=== PATIENT | female | born 1975 | race African-American/Black ===

== ENCOUNTER 2019-12-08 14:47 | Emergency (ER) | payer BC, OTHER ==
--- OUTSIDE RECORDS SUMMARY | 2019-12-08 14:50 | XMS REPORT | Continuity of Care Document ---
:[address] [facility] t Address [address] [place] [address] Care Team Providers Name Role Phone Unavailable Unavailable Unavailable Problems Condition Condition Condition Status Onset Resolution Last Treating Co mments Source Name Details Category Date Date Treatment Clinician Date Mixed Mixed Diagnosis Active [facility] hyperlipid hyperlipid Geovanna kes - emia emia [facility] HTN HTN Diagnosis Active [facility] (hypertens (hypertens Geovanna kes - ion), ion), [facility] benign benign l [facility] Depression Depression Diagnosis [facility] with [facility] anxiety anxiety [facility] Bone Bone Diagnosis Active [facility] lesion lesion [facility] Amenorrhea Amenorrhea Problem Active [facility] Menopausal Menopausal Problem Active [facility] disorder disorder [facility] Seasonal Seasonal Diagnosis Active [facility] allergic allergic [facility] - rhinitis, rhinitis, [place] unspecifie unspecifie l d trigger d trigger Outp ati ent Clinics Encounter Encounter Problem Active [facility] for for [facility] - gynecologi gynecologi Me moria philippe philippe l examinatio examinatio Ou tpati n without n without ent abnormal abnormal Clinic s finding finding BMI BMI Problem Active [facility] 33.0-33.9, 33.0-33.9, Geovanna kes - adult adult [facility] Encounter Encounter Problem Active [facility] - screening screening [place] mammogram mammogram l for breast for breast Ou tpati cancer cancer ent Clinics Osteoarthr Osteoarthr Diagnosis Active [facility] itis, itis, [facility] - unspecifie unspecifie Me moria d d l osteoarthr osteoarthr Ou tpati itis type, itis type, en t unspecifie unspecifie Cl inics d site d site Prediabete Prediabete Diagnosis Active [facility] GERD GERD Problem Active [facility] without without [facility] - esophagiti esophagiti Me moria s s l [facility] Allergies, Adverse Reactions, Alerts Allergy Allergy Status Severity Reaction(s) Onset Inactive Treating Comm ents Source Name Type Date Date Clinician penicill Adverse Active Info Not [facility] t in Reaction Available [facility] Aspirin Adverse Active Info Not [facility] Reaction Available [facility] Medications Ordered Filled Start Stop Current Ordering Indication Dosage Frequency Signature Comments Components Source Medication Medication Date Date Medication? Clinician (SIG) Name Name Duexis Duexis Yes [place] [address] [facility] 4-22 [facility] - 00:00: Memoria 00 [facility] Lisinopril- Lisinopril- Yes [place] [address] [facility] Hydrochloro Hydrochloro [facility] - thiazide thiazide [facility] Lisinopril- Lisinopril- Yes [place] [address] [facility] [address] Hydrochloro Hydrochloro [facility] - thiazide thiazide [facility] Immunizations Ordered Filled Immunization Date Status Comments Sourc e Immunization Name Name Afluria single dose Afluria single dose 2018-12-[address] [facility] 00[facility]00 [facility] Procedures This patient has no known procedures. Encounters Start End Encounter Admission Attending Care Care Encounter Source Date/Time Date/Time Type Type Clinicians Facility Department ID 2019-08-27 2019-08-27 [facility] [id number] [facility] 16:15:00 16:15:00 t Soccer Manager [facility] [employer] 2019-08-06 2019-08-06 [facility] [id number] [facility] 10:15:00 10:15:[address] Soccer [address] [facility] [employer] 2019-04-07 2019-04-07 [facility] [id number] [facility] 16:45:00 16:45:[address] [facility] [employer] 2018-12-31 2018-12-31 [facility] [id number] 16[facility]00:00 16:00:00 t Warren Warren [facility]CL [facility] - [facility] Medicine Outpati ent Clinics 2018-12-17 2018-12-17 [facility] [id number] 15:03:00 15:03:00 t Warren Warren [employer] - [facility] Medicine Outpati ent Clinics 2018-09-01 2018-09-01 [facility] [id number] [facility] 08[facility]36:00 08:36:00 t [facility] Clinic l Outpati ent Clinics 2018-08-18 2018-08-18 [facility] [id number] 10:30:00 10:30:00 t Warren Warren [employer] - [facility] Outpati ent Clinics 2018-06-16 2018-06-16 [facility] [id number] [address] 09:30:00 09:30:00 t Warren [employer] s - Drive [facility] Outpati ent Clinics 2017-10-02 2017-10-02 [facility] [id number] 14:44:00 14:44:00 t [facility] [place] [facility] Clinics 2017-09-25 2017-09-25 [facility] [id number] [address] 11:00:00 11:00:00 t [facility] [place] [facility] 2017-08-21 2017-08-21 [facility] [id number] 11:07:00 11:07:00 t Warren Warren [employer] - [facility] Outpati ent Clinics 2017-07-25 2017-07-25 [facility] [id number] 10:45:00 10:45:00 t Warren [employer] s - Drive [facility] Outpat[facility] ent Clinics Results This patient has no known results.
[2019-12-08] MEDS ORDERED: HYDROCODONE/APAP 10/325 TAB ONE (16:54)
--- NOTE | 2019-12-08 17:30 | RAD REPORT ---
EXAM DESCRIPTION: US - Extrem Venous W Compress Cuco - 12/08/2019 5:11 pm CLINICAL HISTORY: SWELLING COMPARISON: None. TECHNIQUE: Real-time sonographic evaluation of the bilateral lower extremity common femoral, superfi cial femoral, popliteal and posterior tibial veins was performed. FINDINGS: Normal compressibility, flow augmentation, phasic flow and spontaneous flow are identified in the left and right lower extremity common femoral, superficial femoral, popliteal and posterior t ibial veins. No intraluminal filling defects seen. IMPRESSION: No DVT in either lower extremity.
--- NOTE | 2019-12-08 17:31 | RAD REPORT ---
EXAM DESCRIPTION: RAD - Knee Right 3 View - 12/08/2019 5:10 pm CLINICAL HISTORY: Pain;Swelling COMPARISON: No comparisons FINDINGS: No fracture, dislocation or periosteal reaction.No joint effusion seen. No joint space jennifer rowing. No foreign body or other soft tissue abnormality. IMPRESSION: Negative right knee. Clinical concerns for internal derangement or occult bony injury could be further assessed with MR im aging.
--- NOTE | 2019-12-08 17:32 | RAD REPORT ---
EXAM DESCRIPTION: RAD - Femur Left - 12/08/2019 5:11 pm CLINICAL HISTORY: PAIN COMPARISON: None. FINDINGS: No fracture is identified. There is no dislocation or periosteal reaction noted. No AVN o r focal femoral head abnormality. No joint effusion seen at the hip. . No air or foreign body in the soft tissues. No periarticular abnormality. IMPRESSION: Negative left femur examination.
--- NOTE | 2019-12-08 17:50 | EDPHYS ---
Physician Documentation [facility] Name: Oumar Rios Age: 44 yrs Sex: Female : 1975 Arrival Date: 12/08/2019 Time: 14:52 Bed 24 Private MD: ED Physician Samuel Rao HPI: 12/07 16:13 This 44 yrs old Black Female presents to ER via Ambulatory with complaints of Right Leg pm1 Swelling. 16:13 The patient presents with On and off swelling and pain to right leg around her right pm1 knee. Onset: The symptoms/episode began/occurred 4 day(s) ago. Modifying factors: The symptoms are alleviated by nothing. the symptoms are aggravated by weight bearing, bending knee. Associated signs and symptoms: Pertinent positives: swelling, Pertinent negatives calf tenderness, fever, numbness, tingling. Treatment prior to arrival includes: no previous treatment. Severity of symptoms: in the emergency department the symptoms have improved. The patient has not experienced similar symptoms in the past. 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 She would like that evaluated also. ABLE SEAMAN: 15:03 LMP 11/11/2019 jd3 Historical: - Allergies: 15:02 Aspirin; jd3 15:02 PENICILLINS; jd3 - Home Meds: 15:02 lisinopril-hydrochlorothiazide oral oral [Active]; jd3 - PMHx: 15:02 Hypertension; jd3 - PSHx: 15:02 ; jd3 - Immunization history:: Adult Immunizations up to date. - Social history:: Smoking status: Patient denies any tobacco usage or history of. ROS: 16:17 Constitutional: Negative for fever, chills, and weight loss, Cardiovascular: Negative pm1 for chest pain, palpitations, and edema, Respiratory: Negative for shortness of breath, cough, wheezing, and pleuritic chest pain, Abdomen/GI: Negative for abdominal pain, nausea, vomiting, diarrhea, and constipation, Back: Negative for injury and pain. 16:17 Skin: Negative for injury, rash, and discoloration, Neuro: Negative for headache, weakness, numbness, tingling, and seizure. 16:17 MS/extremity: Positive for pain, swelling, tenderness, of the distarl right hamstring, posterior aspect of right knee, proximal medial aspect of right calf, distal right quadriceps and proximal right hartley, Negative for injury or acute deformity, decreased range of motion. Exam: 16:17 Constitutional: This is a well developed, well nourished patient who is awake, alert, pm1 and in no acute distress. Head/Face: Normocephalic, atraumatic. 16:17 Skin: Warm, dry with normal turgor. Normal color with no rashes, no lesions, and no evidence of cellulitis. MS/ Extremity: Pulses equal, no cyanosis. Neurovascular intact. Full, normal range of motion. 16:17 Cardiovascular: Exam negative for acute changes, Rate: normal, Rhythm: regular, Pulses: no pulse deficits are appreciated, Pulses are 2+ in right posterior tibial artery and right dorsalis pedis artery. Edema: pedal edema, that is very mild, right leg. 16:17 Respiratory: Exam negative for acute changes, respiratory distress, shortness of breath. 16:17 Neuro: Exam negative for acute changes, Orientation: is normal, Mentation: is normal, Motor: is normal, moves all fours. Vital Signs: 15:03 BP 106 / 75; Pulse 87; Resp 17 S; Temp 98.1(O); Pulse Ox 100% on R/A; Weight 102.06 kg jd3 (R); Height 5 ft. 8 in. (172.72 cm) (R); Pain 8/10; 15:03 Body Mass Index 34.21 (102.06 kg, 172.72 cm) jd3 MDM: 16:05 Patient medically screened. pm1 16:20 Data reviewed: vital signs. Data interpreted: Pulse oximetry: on room air is 100 %. pm1 Interpretation: normal. 17:48 Counseling: I had a detailed discussion with the patient and/or guardian regarding: the pm1 historical points, exam findings, and any diagnostic results supporting the discharge/admit diagnosis, radiology results, the need for outpatient follow up, to return to the emergency department if symptoms worsen or persist or if there are any questions or concerns that arise at home. 12/07 16:17 Order name: Knee Right 3 View XRAY; Complete Time: 17:34 pm1 12/07 16:17 Order name: Femur Left XRAY; Complete Time: 17:34 pm1 12/07 17:12 Order name: Extrem Venous W Compress Cuco; Complete Time: 17:32 EDVA Administered Medications: 16:43 Drug: [place] 10 mg-325 mg 1 tabs Route: PO; 17:30 Follow up: Response: No adverse reaction; Pain is decreased Disposition: 18:30 Co-signature as Attending Physician, Samuel Rao MD. rn Disposition: 12/08/19 17:49 Discharged to Home. Impression: Pain in right knee, Pain in left leg. - Condition is Stable. - Discharge Instructions: Musculoskeletal Pain, Knee Pain. - Prescriptions for Tramadol 50 mg Oral Tablet - take 1 tablet by ORAL route every 8 hours as needed; 12 tablet. - Medication Reconciliation Form, Thank You Letter, Antibiotic Education, Prescription Opioid Use form. - Follow up: Emergency Department; When: As needed; Reason: Worsening of condition. Follow up: Private Physician; When: 2 - 3 days; Reason: Recheck today's complaints, Continuance of care, Re-evaluation by your physician. - Problem is new. - Symptoms have improved. Signatures: Dispatcher [employer] [facility] Smita Cedeno RN RN iw Nieto, Roman, MD MD rn Marinas, Patrick, ARCHITECTURAL EXAMINER ARCHITECTURAL EXAMINER pm1 Huan Franco RN RN jd3 Corrections: (The following items were deleted from the chart) 17:12 15:46 Extremity Venous Uni Ltd+[email or web address] ordered. [facility] 17:57 17:49 12/08/2019 17:49 Discharged to Home. Impression: Pain in right knee; Pain in left iw leg. Condition is Stable. Forms are Medication Reconciliation Form, Thank You Letter, Antibiotic Education, Prescription Opioid Use. Follow up: Emergency Department; When: As needed; Reason: Worsening of condition. Follow up: Private Physician; When: 2 - 3 days; Reason: Recheck today's complaints, Continuance of care, Re-evaluation by your physician. Problem is new. Symptoms have improved. pm1
--- NOTE | 2019-12-08 17:50 | ER ---
Nurse's Notes [facility] Name: Oumar Rios Age: 44 yrs Sex: Female : 1975 Arrival Date: 12/08/2019 Time: 14:52 Bed 24 Private MD: Diagnosis: Pain in right knee;Pain in left leg Presentation: 12/07 15:00 Chief complaint: Patient states: "Off and on my right leg has been swelling. my doctor jd3 wanted me to come in and make sure it was not a clot.". Coronavirus screen: At this time, the client does not indicate any symptoms associated with coronavirus-19. Ebola Screen: Patient negative for fever greater than or equal to 101.5 degrees Fahrenheit, and additional compatible Ebola Virus Disease symptoms. Initial Sepsis Screen: Does the patient meet any 2 criteria? No. Patient's initial sepsis screen is negative. Does the patient have a suspected source of infection? No. Patient's initial sepsis screen is negative. Risk Assessment: Do you want to hurt yourself or someone else? Patient reports no desire to harm self or others. Onset of symptoms was December 04, 2019. 15:00 Method Of Arrival: Ambulatory jd3 15:00 Acuity: JEREMY 4 jd3 Triage Assessment: 17:55 General: Appears in no apparent distress. Behavior is calm, cooperative. 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 - Social history:: Smoking status: Patient denies any tobacco usage or history of. Screenin:57 Abuse screen: Denies threats or abuse. Denies injuries from another. Nutritional iw screening: No deficits noted. Tuberculosis screening: No symptoms or risk factors identified. Fall Risk None identified. Assessment: 17:00 General: Appears in no apparent distress. Behavior is calm, cooperative. Pain: iw Complains of pain in right knee. Neuro: Level of Consciousness is awake, alert, obeys commands, Oriented to person, place, time, situation. Cardiovascular: Patient's skin is warm and dry. Respiratory: Respiratory effort is even, unlabored, Respiratory pattern is regular. Musculoskeletal: Range of motion: intact in all extremities, Reports pain in right knee. 17:56 Reassessment: Patient appears in no apparent distress at this time. Patient and/or iw family updated on plan of care and expected duration. Pain level reassessed. Patient is alert, oriented x 3, equal unlabored respirations, skin warm/dry/pink. Patient states feeling better. Patient states symptoms have improved. Vital Signs: 15:03 BP 106 / 75; Pulse 87; Resp 17 S; Temp 98.1(O); Pulse Ox 100% on R/A; Weight 102.06 kg jd3 (R); Height 5 ft. 8 in. (172.72 cm) (R); Pain 8/10; 15:03 Body Mass Index 34.21 (102.06 kg, 172.72 cm) jd3 ED Course: 14:52 Patient arrived in ED. mr 15:02 Triage completed. jd3 15:05 Arm band placed on. jd3 15:58 Smita Cedeno, RN is Primary Nurse. iw 16:05 Juan Pablo Thao, HOSIERY REPAIRER is PHCP. pm1 16:05 Samuel Rao MD is Attending Physician. pm1 17:00 Patient has correct armband on for positive identification. iw 17:10 Knee Right 3 View XRAY In Process Unspecified. EDMS 17:10 Femur Left XRAY In Process Unspecified. EDMS 17:13 Extrem Venous W Compress Cuco In Process Unspecified. EDMS 17:56 No provider procedures requiring assistance completed. Patient did not have IV access iw during this emergency room visit. Administered Medications: 16:43 Drug: [place] 10 mg-325 mg 1 tabs Route: PO; iw 17:30 Follow up: Response: No adverse reaction; Pain is decreased iw Outcome: 17:49 Discharge ordered by . pm1 17:56 Discharged to home ambulatory. iw 17:56 Condition: good 17:56 Discharge instructions given to patient, Instructed on discharge instructions, follow up and referral plans. medication usage, Demonstrated understanding of instructions, follow-up care, medications, Prescriptions given X 1. 17:57 Patient left the ED. iw Signatures: Dispatcher [employer] [facility] Celeste Newman mr Smita Cedeno, RN RN iw Juan Pablo Thao NP HOSIERY REPAIRER pm1 Huan Franco RN RN jd3 Corrections: (The following items were deleted from the chart) 15:05 15:03 Pulse 87bpm; Resp 17bpm; Spontaneous; Pulse Ox 100% RA; Temp 98.1F Oral; 102.06 jd3 kg Reported; Height 5 ft. 8 in. Reported; BMI: 34.2; Pain 8/10; jd3 15:06 15:03 Pulse 87bpm; Resp 17bpm; Spontaneous; Pulse Ox 100% RA; Temp 98.1F Oral; 102.06 jd3 kg Reported; Height 5 ft. 8 in. Reported; BMI: 34.2; Pain 8/10; jd3 17:12 17:08 In radiology for Extremity Venous Uni Ltd+[email or web address]. EDMS EDMS
[2019-12-08 18:39] VITALS: BP 106/75; TEMP 98.1; O2SAT 100
== END 2019-12-08 17:57 | disposition home or self-care (01) ==
LOC: ER 14:47
DX: M25.561 Pain in right knee (principal); M79.662 Pain in left lower leg; I10 Essential (primary) hypertension; Z88.0 Allergy status to penicillin; Z88.6 Allergy status to analgesic agent
CPT/HCPCS: 93970; 99283

== ENCOUNTER 2024-11-17 16:00 | Emergency (ER) | payer BC, OTHER ==
--- OUTSIDE RECORDS SUMMARY | 2024-11-17 16:04 | XMS REPORT | Continuity of Care Document ---
Author Name Unknown Address [address] [place] [address] [facility] Address [address] [place] [address] Care Team Providers Care [employer] Manager Name Role Phone SHEA DAVIES Primary Care Physician Unavailab Rachel Wangh Garrick Attending Clinician Unavailable KENDY LAGUERRE Attending Clinician Unavailable Hebert INPATIENT NURSING AIDE, Kendy Attending Clinician [phone] [facility] Attending Clinician Unavailable MASON KAISER Attending Clinician Unavailable Mason Soares Attending Clinician [phone] [facility] Admitting Clinician Unavailable Payers Payer Name Policy Type Policy Number Effective Date Expirati on Date Source HIM [facility] [id number] 2024 00:00:00 Kaylah Carney 53 [id number] 2023 00:00:00 [facility] [place] [address] [id number] 2019 00:00:00 [facility] Problems Condition Name Condition Details Condition Category Status Onset Date Resolution Date Last Treatment Date Treating Clinician Comments Source [id number] Type 2 diabetes mellitus with hyperglyce sarah, without long-term current use of insulin Problem [facility] [id number] Morbid (severe) obesity due to excess calories Problem [facility] [id number] Mixed hyperlipid emia Problem [facility] [id number] Bone lesion Problem [facility] [id number] Depression with anxiety Problem [facility] [id number] Menopausal disorder Problem [facility] [id number] Osteoarthr itis, unspecifie d osteoarthr itis type, unspecifie d site Problem [facility] [id number] Seasonal allergic rhinitis, unspecifie d trigger Problem [facility] [id number] GERD without esophagiti s Problem [facility] [id number] Amenorrhea Problem Comm on [facility] [id number] HTN (hypertens ion), benign Problem [facility] [id number] Encounter for gynecologi philippe examinatio n without abnormal finding Problem [facility] [id number] Encounter for screening mammogram for breast cancer Problem [facility] [id number] Body mass index [BMI] 35.0-35.9, adult Problem [facility] [id number] Other obesity due to excess calories Problem [facility] Allergies, Adverse Reactions, Alerts Allergy Name Allergy Type Status Severity Reaction(s) Onset Date Inactive Date Treating Clinician Comments Source aspirin (Not Checked) Propensi ty to adverse reaction to drug Active 2023-02 0 00:00: 00 Jaden Negron Penicill in Propensi ty to adverse reaction s Active Hives 05-22 00:00: 00 [facility] ASPIRIN DRUG INGREDI Active Hives 05-22 00:00: 00 [facility] PENICILL IN DRUG INGREDI Active Hives 05-22 00:00: 00 [facility] Aspirin Propensi ty to adverse reaction s Active Hives 2024-0 3-28 00:00: 00 [facility] Penicill ins Propensi ty to adverse reaction to drug Inactiv e 8-19 00:00: 00 Jaden Negron Aspirin Propensi ty to adverse reaction to drug Inactiv e 2-20 00:00: 00 Jaden Negron aspirin aspirin Active Unknown [facility] Penicill in Penicill in Active Unknown [facility] Social History Social Habit Start Date Stop Date Quantity Comments Source History of Tobacco Use [facility] Sexual orientation [facility] Sex assigned at 1975 00:00:00 1975 00:00:00 [facility] Smoking Status Start Date Stop Date Source Tobacco smoking consumption unknown [facility] Never Smoker [facility] Medications Ordered Medication Name Filled Medication Name Start Date Stop Date Current Medication? Ordering Clinician Indication Dosage Frequency Signature (SIG) Comments Components Source Trulicity 0.75 mg/0.5 mL subcutaneou s pen injector 06-15 00:00: 00 Yes mg/0.5 mL Jaden Negron lisinopril 20 mg-hydrochl orothiazide 25 mg tablet 06-15 00:00: 00 Yes 1mg Jaden Negron atorvastati n 10 mg tablet 06-09 00:00: 00 Yes 1mg Jaden Negron gabapentin 300 mg capsule - 00:00: 00 Yes mg Jaden Negron Trulicity 0.75 mg/0.5 mL subcutaneou s pen injector - 00:00: 00 Yes mg/0.5 mL Jaden Negron lisinopril 20 mg-hydrochl orothiazide 25 mg tablet 03-19 00:00: 00 Yes 1mg Jaden Negron acyclovir 200 mg capsule - 00:00: 00 03-14 05:59 :00 No [id number] 800mg Take 4 capsules by mouth 5 (five) times daily for 7 days. [facility] HYDROcodone -acetaminop hen (NORCO 5) tablet 1 tablet -06 22:30: 00 03-02 23:04 :00 No 1{tbl} 1 tablet, Oral, ONCE, 1 dose, On Sat03/02/24 at 1630, [facility] methocarbam oL (ROBAXIN) tablet 500 mg 03-02 22:19: 00 03-02 23:04 :00 No 500mg 500 mg, Oral, ONCE, 1 dose, On Sat03/02/24 at 1630[facility] mg tablet 03-02 00:00: 00 03-10 05:59 :00 No [id number] 50mg Take 1 tablet by mouth every 8 (eight) hours as needed for Pain (scale 7-10) for up to 7 days. Indication s: acute pain [facility] Trulicity 0.75 mg/0.5 mL subcutaneou s pen injector 2023-02 00:00: 00 Yes mg/0.5 mL Jaden Negron lisinopril 20 mg tablet 2023-02 00:00: 00 Yes 1mg Jaden Negron Trulicity 0.75 mg/0.5 mL subcutaneou s pen injector 2023-02 00:00: 00 Yes mg/0.5 mL Jaden Negron lisinopril 20 mg-hydrochl orothiazide 25 mg tablet 2023-02 00:00: 00 Yes 1mg Jaden Negron metformin ER 500 mg tablet,exte nded release 24 hr 2023-02 00:00: 00 Yes 1mg Jaden Negron methocarbam oL 750 mg tablet 05-22 00:00: 00 Yes [id number] 750mg Take 1 tablet by mouth every 6 (six) hours as needed for Pain (scale 1-3). [facility] azithromyci n 250 mg tablet 10-13 00:00: 00 Yes 1mg Jaden Negron lisinopril 20 mg-hydrochl orothiazide 25 mg tablet 04-16 00:00: 00 Yes 1mg Jaden Negron amoxicillin 875 mg tablet 04-16 00:00: 00 Yes 1mg Jaden Negron Lisinopril- hydroCHLORO thiazide 20-25 MG Lisinopril- hydroCHLORO thiazide 20-25 MG No 1{table t} QD Lisinopril -hydroCHLO ROthiazide 20-25 MG Duexis 800-26.6 MG Duexis 800-26.6 MG No 1{table t} TID Duexis 800-26.6 MG metFORMIN HCl ER 500 MG metFORMIN HCl ER 500 MG No 1{table t_with_ evening _meal} QD metFORMIN HCl ER 500 MG Ozempic 0.25 or 0.5 MG/DOSE Ozempic 0.25 or 0.5 MG/DOSE No Ozempic 0.25 or 0.5 MG/DOSE Immunizations Ordered Immunization Name Filled Immunization Name Date Status Comments Source Flucelvax - single dose syringe Flucelvax - single dose syringe 2022-01-08 11:43:00 [facility] Afluria single dose Afluria single dose 10:55:00 Completed [facility] Afluria single dose Afluria single dose 10:55:00 Completed [facility] Afluria single dose Afluria single dose 10:55:00 [facility] Afluria single dose Afluria single dose 16:14:00 [facility] Afluria single dose Afluria single dose 16:14:00 Completed [facility] Afluria single dose Afluria single dose 16:14:00 [facility] Afluria single dose Afluria single dose 00:00:00 Completed [facility] Afluria single dose Afluria single dose Unknown Completed [facility] Flucelvax - single dose syringe Flucelvax - single dose syringe Unknown Completed [facility] Afluria single dose Afluria single dose Unknown Completed [facility] Flucelvax - single dose syringe Flucelvax - single dose syringe Unknown Completed [facility] Boostrix (Tdap) Boostrix (Tdap) Unknown Completed [facility] Afluria single dose Afluria single dose Unknown Completed [facility] Flucelvax - single dose syringe Flucelvax - single dose syringe Unknown Completed [facility] Boostrix (Tdap) Boostrix (Tdap) Unknown Completed [facility] Afluria single dose Afluria single dose Unknown Completed [facility] Flucelvax - single dose syringe Flucelvax - single dose syringe Unknown Completed [facility] Boostrix (Tdap) Boostrix (Tdap) Unknown Completed [facility] Afluria single dose Afluria single dose Unknown Completed [facility] Flucelvax - single dose syringe Flucelvax - single dose syringe Unknown Completed [facility] Boostrix (Tdap) Boostrix (Tdap) Unknown Completed [facility] Afluria (IIV4) - 3 years and older - SDS - 0.5mL Afluria (IIV4) - 3 years and older - SDS - 0.5mL Unknown Completed [facility] Flucelvax (ccIIV4) - SDS - 0.5mL Flucelvax (ccIIV4) - SDS - 0.5mL Unknown Completed [facility] Boostrix (Tdap) Boostrix (Tdap) Unknown Completed [facility] Afluria (IIV4) - 3 years and older - SDS - 0.5mL Afluria (IIV4) - 3 years and older - SDS - 0.5mL Unknown Completed [facility] Flucelvax (ccIIV4) - SDS - 0.5mL Flucelvax (ccIIV4) - SDS - 0.5mL Unknown Completed [facility] Boostrix (Tdap) Boostrix (Tdap) Unknown Completed [facility] Afluria (IIV4) - 3 years and older - SDS - 0.5mL Afluria (IIV4) - 3 years and older - SDS - 0.5mL Unknown Completed [facility] Flucelvax (ccIIV4) - SDS - 0.5mL Flucelvax (ccIIV4) - SDS - 0.5mL Unknown Completed [facility] Boostrix (Tdap) Boostrix (Tdap) Unknown Completed [facility] Afluria (IIV4) - 3 years and older - SDS - 0.5mL Afluria (IIV4) - 3 years and older - SDS - 0.5mL Unknown Completed [facility] Flucelvax (ccIIV4) - SDS - 0.5mL Flucelvax (ccIIV4) - SDS - 0.5mL Unknown Completed [facility] Boostrix (Tdap) Boostrix (Tdap) Unknown Completed [facility] Afluria (IIV4) - 3 years and older - SDS - 0.5mL Afluria (IIV4) - 3 years and older - SDS - 0.5mL Unknown Completed [facility] Flucelvax (ccIIV4) - SDS - 0.5mL Flucelvax (ccIIV4) - SDS - 0.5mL Unknown Completed [facility] Boostrix (Tdap) Boostrix (Tdap) Unknown Completed [facility] Afluria (IIV4) - 3 years and older - SDS - 0.5mL Afluria (IIV4) - 3 years and older - SDS - 0.5mL Unknown Completed [facility] Flucelvax (ccIIV4) - SDS - 0.5mL Flucelvax (ccIIV4) - SDS - 0.5mL Unknown Completed [facility] Boostrix (Tdap) Boostrix (Tdap) Unknown Completed [facility] Afluria (IIV4) - 3 years and older - SDS - 0.5mL Afluria (IIV4) - 3 years and older - SDS - 0.5mL Unknown Completed [facility] Flucelvax (ccIIV4) - SDS - 0.5mL Flucelvax (ccIIV4) - SDS - 0.5mL Unknown Completed [facility] Boostrix (Tdap) Boostrix (Tdap) Unknown Completed [facility] Afluria (IIV4) - 3 years and older - SDS - 0.5mL Afluria (IIV4) - 3 years and older - SDS - 0.5mL Unknown Completed [facility] Flucelvax (ccIIV4) - SDS - 0.5mL Flucelvax (ccIIV4) - SDS - 0.5mL Unknown Completed [facility] Boostrix (Tdap) Boostrix (Tdap) Unknown Completed [facility] Afluria (IIV4) - 3 years and older - SDS - 0.5mL Afluria (IIV4) - 3 years and older - SDS - 0.5mL Unknown Completed [facility] Flucelvax (ccIIV4) - SDS - 0.5mL Flucelvax (ccIIV4) - SDS - 0.5mL Unknown Completed [facility] Boostrix (Tdap) Boostrix (Tdap) Unknown Completed [facility] Afluria (IIV4) - 3 years and older - SDS - 0.5mL Afluria (IIV4) - 3 years and older - SDS - 0.5mL Unknown Completed [facility] Flucelvax (ccIIV4) - SDS - 0.5mL Flucelvax (ccIIV4) - SDS - 0.5mL Unknown Completed [facility] Boostrix (Tdap) Boostrix (Tdap) Unknown Completed [facility] Afluria (IIV4) - 3 years and older - SDS - 0.5mL Afluria (IIV4) - 3 years and older - SDS - 0.5mL Unknown Completed [facility] Flucelvax (ccIIV4) - SDS - 0.5mL Flucelvax (ccIIV4) - SDS - 0.5mL Unknown Completed [facility] Boostrix (Tdap) Boostrix (Tdap) Unknown Completed [facility] Afluria (IIV4) - 3 years and older - SDS - 0.5mL Afluria (IIV4) - 3 years and older - SDS - 0.5mL Unknown Completed [facility] Flucelvax (ccIIV4) - SDS - 0.5mL Flucelvax (ccIIV4) - SDS - 0.5mL Unknown Completed [facility] Boostrix (Tdap) Boostrix (Tdap) Unknown Completed [facility] Vital Signs Vital Name Observation Time Observation Value Comments S ource Systolic blood pressure 2024-03-06 20:15:00 130 mm[Hg] [facility] Diastolic blood pressure 2024-03-06 20:15:00 80 mm[Hg] [facility] Heart rate 2024-03-06 20:15:00 72 /min [facility] Body temperature 2024-03-06 20:15:00 36.78 Chichi [facility] Respiratory rate 2024-03-06 20:15:00 16 /min [facility] Body height 2024-03-06 20:15:00 172.7 cm [facility] Body weight 2024-03-06 20:15:00 104.327 kg [facility] BMI 2024-03-06 20:15:00 34.97 kg/m2 [facility] Oxygen saturation in Arterial blood by Pulse oximetry 2024-03-06 20:15:00 100 /min [facility] Systolic blood pressure 2024-03-02 21:17:00 139 mm[Hg] [facility] Diastolic blood pressure 2024-03-02 21:17:00 90 mm[Hg] [facility] Heart rate 2024-03-02 21:17:00 72 /min [facility] Body temperature 2024-03-02 21:17:00 36.5 Chichi [facility] Respiratory rate 2024-03-02 21:17:00 20 /min [facility] Body height 2024-03-02 21:17:00 172.7 cm [facility] Body weight 2024-03-02 21:17:00 104.327 kg [facility] BMI 2024-03-02 21:17:00 34.97 kg/m2 [facility] Oxygen saturation in Arterial blood by Pulse oximetry 2024-03-02 21:17:00 100 /min [facility] height 2023-05-06 09:00:00 69 [in_i] Commo n [facility] weight 2023-05-06 09:00:00 224.0 [lb_av] Co [facility] temperature 2023-05-06 09:00:00 97.6 [degF] Com [facility] bmi 2023-05-06 09:00:00 33.08 kg/m2 Comm on [facility] oximetry 2023-05-06 09:00:00 98 % Comm n [facility] respiratory rate 2023-05-06 09:00:00 18 /min [facility] blood pressure systolic 2023-05-06 09:00:00 117 mm[Hg] [facility] blood pressure diastolic 2023-05-06 09:00:00 68 mm[Hg] [facility] height 2023-04-24 10:00:00 69 [in_i] Commo n [facility] weight 2023-04-24 10:00:00 228 [lb_av] Comm on [facility] temperature 2023-04-24 10:00:00 97.9 [degF] Com [facility] bmi 2023-04-24 10:00:00 33.67 kg/m2 Comm on [facility] height 2023-02-04 15:40:00 69 [in_i] Commo n [facility] weight 2023-02-04 15:40:00 234.6 [lb_av] Co [facility] bmi 2023-02-04 15:40:00 34.64 kg/m2 Comm on [facility] height 2022-12-31 11:20:00 69 [in_i] Commo n [facility] weight 2022-12-31 11:20:00 234.6 [lb_av] Co [facility] temperature 2022-12-31 11:20:00 97.3 [degF] Com [facility] bmi 2022-12-31 11:20:00 34.64 kg/m2 Comm on [facility] oximetry 2022-12-31 11:20:00 98 % Commo n [facility] respiratory rate 2022-12-31 11:20:00 18 /min Common [facility] blood pressure systolic 2022-12-31 11:20:00 115 mm[Hg] Common [facility] blood pressure diastolic 2022-12-31 11:20:00 70 mm[Hg] Common [facility] height 2022-09-04 15:30:00 69 [in_i] Commo n [facility] weight 2022-09-04 15:30:00 241.0 [lb_av] Co on [facility] temperature 2022-09-04 15:30:00 97.0 [degF] Com [facility] bmi 2022-09-04 15:30:00 35.59 kg/m2 Comm on [facility] oximetry 2022-09-04 15:30:00 94 % Commo n [facility] respiratory rate 2022-09-04 15:30:00 17 /min Common [facility] blood pressure systolic 2022-09-04 15:30:00 122 mm[Hg] [facility] blood pressure diastolic 2022-09-04 15:30:00 76 mm[Hg] Common [facility] height 2022-05-08 11:10:00 69 [in_i] Commo n [facility] weight 2022-05-08 11:10:00 239.0 [lb_av] Co mmon [facility] temperature 2022-05-08 11:10:00 97.0 [degF] Com [facility] bmi 2022-05-08 11:10:00 35.29 kg/m2 Comm on [facility] oximetry 2022-05-08 11:10:00 98 % Commo n [facility] respiratory rate 2022-05-08 11:10:00 18 /min Common [facility] blood pressure systolic 2022-05-08 11:10:00 126 mm[Hg] Common [facility] blood pressure diastolic 2022-05-08 11:10:00 71 mm[Hg] Common [facility] height 2022-01-08 11:20:00 69 [in_i] Commo n [facility] weight 2022-01-08 11:20:00 241.6 [lb_av] Co [facility] temperature 2022-01-08 11:20:00 97.4 [degF] Com [facility] bmi 2022-01-08 11:20:00 35.67 kg/m2 Comm on [facility] oximetry 2022-01-08 11:20:00 98 % Commo n [facility] respiratory rate 2022-01-08 11:20:00 18 /min Common [facility] blood pressure systolic 2022-01-08 11:20:00 118 mm[Hg] Common [facility] blood pressure diastolic 2022-01-08 11:20:00 78 mm[Hg] [facility] height 2021-10-02 14:50:00 69 [in_i] Commo n [facility] weight 2021-10-02 14:50:00 237.5 [lb_av] Co [facility] temperature 2021-10-02 14:50:00 98.4 [degF] Com [facility] bmi 2021-10-02 14:50:00 35.07 kg/m2 Comm on [facility] oximetry 2021-10-02 14:50:00 95 % Commo n [facility] respiratory rate 2021-10-02 14:50:00 17 /min Common [facility] blood pressure systolic 2021-10-02 14:50:00 135 mm[Hg] Common [facility] blood pressure diastolic 2021-10-02 14:50:00 80 mm[Hg] Common [facility] weight 2021-09-04 14:00:00 238.2 [lb_av] Co [facility] bmi 2021-09-04 14:00:00 35.17 kg/m2 Comm on [facility] height 2021-09-04 14:00:00 69 [in_i] Commo n [facility] height 2021-05-04 10:10:00 69 [in_i] Commo n [facility] weight 2021-05-04 10:10:00 238.2 [lb_av] Co [facility] temperature 2021-05-04 10:10:00 98.1 [degF] Com [facility] bmi 2021-05-04 10:10:00 35.17 kg/m2 Comm on [facility] oximetry 2021-05-04 10:10:00 100 % Commo n [facility] respiratory rate 2021-05-04 10:10:00 17 /min Common [facility] blood pressure systolic 2021-05-04 10:10:00 135 mm[Hg] [facility] blood pressure diastolic 2021-05-04 10:10:00 84 mm[Hg] Common [facility] height 2021-02-27 10:10:00 69 [in_i] Commo n [facility] weight 2021-02-27 10:10:00 240.9 [lb_av] Co mmon [facility] temperature 2021-02-27 10:10:00 98.2 [degF] Com mon [facility] bmi 2021-02-27 10:10:00 35.57 kg/m2 Comm on [facility] oximetry 2021-02-27 10:10:00 99 % Commo n [facility] respiratory rate 2021-02-27 10:10:00 17 /min Common [facility] blood pressure systolic 2021-02-27 10:10:00 132 mm[Hg] Common [facility] blood pressure diastolic 2021-02-27 10:10:00 82 mm[Hg] Common [facility] BP Systolic 2024-06-15 10:01:00 128 mm[Hg] Step hen F Jamil BP Diastolic 2024-06-15 10:01:00 80 mm[Hg] Ped[place] phen F Jamil Weight Measured 2024-06-15 10:01:00 223.80 pounds Jaden F Jamil Height Measured 2024-06-15 10:01:00 67.72 inches Jaden F Jamil Body Temperature 2024-06-15 10:01:00 97.40 degrees Jaden F Jamil Heart Rate 2024-06-15 10:01:00 74.00 /min Merna en F Jamil Respiratory Rate 2024-06-15 10:01:00 18.00 /min Jaden F Jamil BP Systolic 2024-03-19 16:30:00 125 mm[Hg] Step hen F Jamil BP Diastolic 2024-03-19 16:30:00 69 mm[Hg] [place] phen F Jamil Weight Measured 2024-03-19 16:30:00 223.40 pounds Jaden F Jamil Height Measured 2024-03-19 16:30:00 67.72 inches Jaden F Jamil Body Temperature 2024-03-19 16:30:00 98.20 degrees Jaden F Jamil Heart Rate 2024-03-19 16:30:00 91.00 /min Merna en F Jamil Respiratory Rate 2024-03-19 16:30:00 16.00 /min Jaden Negron BP Diastolic 2023-12-18 16:23:00 83 mm[Hg] Pedrito Negron Weight Measured 2023-12-18 16:23:00 231.20 pounds Jaden Negron Height Measured 2023-12-18 16:23:00 67.72 inches Jaden Negron Body Temperature 2023-12-18 16:23:00 97.90 degrees Jaden Negron Heart Rate 2023-12-18 16:23:00 72.00 /min Merna Negron Respiratory Rate 2023-12-18 16:23:00 18.00 /min Jaden Negron BP Systolic 2023-12-18 16:23:00 121 mm[Hg] Conrad Negron Encounters Start Date/Time End Date/Time Encounter Type Admission Type Attending [facility] Care Department Encounter ID Source 2023-08-23 06:13:00 Outpatient Mckinney, [facility] [id number] [facility] 2023-05-06 09:02:00 Outpatient Mckinney, [facility] [id number] [facility] 2023-05-02 13:39:00 Outpatient Mckinney, [facility] [id number] [facility] 2023-04-23 11:26:00 Outpatient Mckinney, [facility] [id number] [facility] 2023-02-04 10:58:00 Outpatient Mckinney, [facility] [id number] [facility] 2022-12-28 14:03:00 Outpatient Mckinney, [facility] [id number] [facility] 2022-12-26 10:33:00 Outpatient Mckinney, [facility] [id number] [facility] 2022-09-11 09:46:00 Outpatient Mckinney, [facility] [id number] [facility] 2022-01-09 12:55:01 Outpatient Mckinney, [place] [facility] 2022-01-04 10:39:00 Outpatient Mckinney, [place] [facility] [id number] [facility] 2021-06-12 08:44:01 Outpatient Mckinney, [place] [facility] 2021-06-05 07:52:00 Outpatient Mckinney, [place] [facility] 2021-05-25 07:56:00 Outpatient Mckinney, [place] [facility] 2021-05-03 13:45:01 Outpatient Mckinney, [place] [facility] 2021-03-22 14:29:59 Outpatient Mckniney, [place] [facility] 2021-03-22 12:49:17 Outpatient Mckinney, [place] [facility] 2021-03-22 11:59:18 Outpatient Mckinney, [place] [facility] 2021-03-22 11:50:58 Outpatient Mckinney, [place] [facility] [id number] [facility] 2021-03-22 11:07:10 Outpatient Mckinney, [place] [facility] [id number] [facility] 2021-03-22 11:06:22 Outpatient Mckinney, [place] [facility] [id number] [facility] 2021-03-22 11:06:13 Outpatient Mckinney, [place] [facility] [id number] [facility] 2024-09-15 15:29:45 2024-09-15 15:29:45 Outpatient [facility] 0722 Jaden Negron 2024-06-15 10:31:03 2024-06-15 10:31:03 Outpatient [facility] 0421 Jaden Negron 2024-06-15 00:00:00 2024-06-15 00:00:00 Outpatient Visit [facility] [id number] Jaden Negron 2024-06-05 09:53:15 2024-06-05 09:53:15 Outpatient [facility] 0411 Jaden Boothe Jamil 2024-03-30 08:38:17 2024-03-30 08:38:17 Outpatient [facility] 0203 Jaden Boothe [place] 2024-03-19 16:26:31 2024-03-19 16:26:31 Outpatient [facility] 0123 Jaden Boothe [place] 2024-03-19 00:00:00 2024-03-19 00:00:00 Outpatient Visit [facility] [id number] Jaden Boothe [place] 2024-03-06 14:17:00 2024-03-06 14:49:00 Emergency X KENDY LAGUERRE [facility] ERT [id number] [facility] 2024-03-06 14:17:00 2024-03-06 14:49:00 Emergency Kendy [facility]uer[facility] [id number] [facility] 2024-03-02 15:18:00 2024-03-02 18:45:00 Emergency X [facility]ON [facility] ERT [id number] [facility] 2024-03-02 15:18:00 2024-03-02 18:45:00 Emergency [facility] [id number] [facility] 2023-12-25 15:41:33 2023-12-25 15:41:33 Outpatient [facility] 1030 Jaden Negron 2023-12-18 16:11:04 2023-12-18 16:11:04 Outpatient [facility] 1023 Jaden Negron 2023-12-18 00:00:00 2023-12-18 00:00:00 Outpatient Visit [facility] [id number] Jaden Negron 2023-09-24 00:00:00 2023-09-24 00:00:00 (TEL) STLMLC STLMLC [id number] [facility] 2023-07-23 00:00:00 2023-07-23 00:00:00 (TEL) STLMLC STLMLC [id number] [facility] 2023-07-02 15:55:41 2023-07-02 15:55:41 Outpatient [facility] 0507 Jaden Negron 2023-05-28 00:00:00 2023-05-28 00:00:00 (TEL) STLMLC STLMLC [id number] [facility] 2023-05-06 00:00:00 2023-05-06 00:00:00 PREV VISIT EST AGE 40-64 STLMLC STLMLC [id number] [facility] 2023-04-24 00:00:00 2023-04-24 00:00:00 OFFICE VISIT ESTAB PT LEVEL 3 STLMLC STLMLC [id number] [facility] 2023-04-22 00:00:00 2023-04-22 00:00:00 (TEL) STLMLC STLMLC [id number] [facility] 2023-02-04 00:00:00 2023-02-04 00:00:00 (TEL) STLMLC STLMLC [id number] [facility] 2023-02-04 00:00:00 2023-02-04 00:00:00 OFFICE VISIT ESTAB PT LEVEL 3 STLMLC STLMLC [id number] [facility] 2023-01-23 00:00:00 2023-01-23 00:00:00 (TEL) STLMLC STLMLC [id number] [facility] 2023-01-22 00:00:00 2023-01-22 00:00:00 (TEL) STLMLC STLMLC [id number] [facility] 2022-12-31 00:00:00 2022-12-31 00:00:00 OFFICE VISIT ESTAB PT LEVEL 4 STLMLC STLMLC [id number] [facility] 2022-12-31 00:00:00 2022-12-31 00:00:00 (TEL) STLMLC STLMLC [id number] [facility] 2022-10-26 00:00:00 2022-10-26 00:00:00 (TEL) STLMLC STLMLC [id number] [facility] 2022-09-06 00:00:00 2022-09-06 00:00:00 (TEL) STLMLC STLMLC [id number] [facility] 2022-09-05 00:00:00 2022-09-05 00:00:00 (TEL) STLMLC STLMLC [id number] [facility] 2022-09-05 00:00:00 2022-09-05 00:00:00 (TEL) STLMLC STLMLC [id number] [facility] 2022-09-04 00:00:00 2022-09-04 00:00:00 OFFICE VISIT ESTAB PT LEVEL 4 STLMLC STLMLC [id number] [facility] 2022-05-08 00:00:00 2022-05-08 00:00:00 PREV VISIT EST AGE 40-64 STLMLC STLMLC [id number] [facility] 2022-01-08 00:00:00 2022-01-08 00:00:00 OFFICE VISIT ESTAB PT LEVEL 4 STLMLC STLMLC [id number] [facility] 2021-10-02 00:00:00 2021-10-02 00:00:00 OFFICE VISIT ESTAB PT LEVEL 4 STLMLC STLMLC [id number] [facility] 2021-09-04 00:00:00 2021-09-04 00:00:00 OFFICE VISIT EST PT LEVEL 3 STLMLC STLMLC [id number] [facility] 2021-09-04 00:00:00 2021-09-04 00:00:00 (TEL) STLMLC STLMLC [id number] [facility] 2021-05-04 00:00:00 2021-05-04 00:00:00 PREV VISIT EST AGE 40-64 STLMLC STLMLC [id number] [facility] 2021-03-07 00:00:00 2021-03-07 00:00:00 (TEL) STLMLC STLMLC [id number] [facility] 2021-02-27 00:00:00 2021-02-27 00:00:00 OFFICE VISIT EST PT LEVEL 3 STLMLC STLMLC [id number] [facility] 2021-02-20 00:00:00 2021-02-20 00:00:00 (TEL) STLMLC STLMLC [id number] [facility] 2020-11-09 00:00:00 2020-11-09 00:00:00 (TEL) STLMLC STLMLC [id number] [facility] 2020-02-29 00:00:00 2020-02-29 00:00:00 Outpatient STLMLC STLMLC [id number] [facility] 2020-02-03 00:00:00 2020-02-03 00:00:00 Outpatient STLMLC STLMLC [id number] [facility] 2019-12-22 00:00:00 2019-12-22 00:00:00 Outpatient STLMLC STLMLC [id number] [facility] 2019-12-08 00:00:00 2019-12-08 00:00:00 Outpatient STLMLC STLMLC [id number] [facility] 2019-08-27 16:15:00 2019-08-27 16:15:[address] [facility] [id number] [facility] 2019-08-06 10:15:00 2019-08-06 10:15:[address] [facility] [id number] [facility] 2019-04-07 16:45:00 2019-04-07 16:45:[address] [facility] [id number] [facility] 2018-12-31 16:00:00 2018-12-31 16:00:[address] [facility] [facility] [id number] [facility] 2018-12-17 15:03:00 2018-12-17 15:03:[address] [facility] [id number] [facility] 2018-09-01 08:36:00 2018-09-01 08:36:00 [facility] [id number] [facility] 2018-08-18 10:30:00 2018-08-18 10:30:[address] [facility] [id number] [facility] 2018-06-16 09:30:00 2018-06-16 09:30:[address] [facility] [facility] [id number] [facility] 2017-10-02 14:44:00 2017-10-02 14:44:00 [facility] [id number] [facility] 2017-09-25 11:00:00 2017-09-25 11:00:00 Outpatient [facility] [id number] [facility] 2017-08-21 11:07:00 2017-08-21 11:07:00 Outpatient [facility] [id number] [facility] 2017-07-25 10:45:00 2017-07-25 10:45:00 Outpatient [facility] [id number] [facility] Results Test Description Test Time Test Comments Results Result Co mments Source Jaden NegronHEMOGLOBIN [id number] 00:00:00* Test Item Value Reference Range Interpretation Comme nts HEMOGLOBIN A1c (test code = 02540) 5.8 % Jaden Boothe JamilCOMPREHENSIVE METABOLIC [id number] 00:00:00* Test Item Value Reference Range Interpretation Comme nts GLUCOSE (test code = 2217) 94 MG/DL BUN (test code = 2208) 14 MG/DL CREATININE (test code = 2214) 0.83 MG/DL eGFR (2020 CKD-EPI) (test co de = 82015) 86 ML/MIN/1.73 CALC BUN/CREAT (test code = 2235) 17 RATIO SODIUM (test code = 2231) 142 MEQ/L POTASSIUM (test code = 2228) 4.2 MEQ/L CHLORIDE (test code = 2215) 102 MEQ/L CARBON DIOXIDE (test code = 2206) 26 MEQ/L CALCIUM (test code = 2209) 10.0 MG/DL PROTEIN, TOTAL (test code = 2229) 7.6 G/DL ALBUMIN (test code = 2201) 4.3 G/DL CALC GLOBULIN (test code = 2240) 3.3 G/DL CALC A/G RATIO (test code = 2234) 1.3 RATIO BILIRUBIN, TOTAL (test code = 2207) 0.4 MG/DL ALKALINE PHOSPHATASE (test code = 2204) 84 U/L AST (test code = 2218) 17 U/L ALT (test code = 2219) 24 U/L Jaden NegronLIPID [id number] 00:00:00* Test Item Value Reference Range Interpretation Comme nts CHOLESTEROL (test code = 2210) 160 MG/DL TRIGLYCERIDES (test code = 2232) 75 MG/DL HDL CHOLESTEROL (test code = 2220) 46 MG/DL CALC LDL CHOL (test code = 2237) 98 MG/DL RISK RATIO LDL/HDL (test cod e = 2238) 2.13 RATIO Jaden NegronHEMOGLOBIN [id number] 00:00:00* Test Item Value Reference Range Interpretation Comme nts HEMOGLOBIN A1c (test code = 22628) 5.8 % Jaden NegronCOMPREHENSIVE METABOLIC [id number] 00:00:00* Test Item Value Reference Range Interpretation Comme nts GLUCOSE (test code = 2217) 94 MG/DL BUN (test code = 2208) 14 MG/DL CREATININE (test code = 2214) 0.83 MG/DL eGFR (2020 CKD-EPI) (test co de = 42833) 86 ML/MIN/1.73 CALC BUN/CREAT (test code = 2235) 17 RATIO SODIUM (test code = 2231) 142 MEQ/L POTASSIUM (test code = 2228) 4.2 MEQ/L CHLORIDE (test code = 2215) 102 MEQ/L CARBON DIOXIDE (test code = 2206) 26 MEQ/L CALCIUM (test code = 2209) 10.0 MG/DL PROTEIN, TOTAL (test code = 2229) 7.6 G/DL ALBUMIN (test code = 2201) 4.3 G/DL CALC GLOBULIN (test code = 2240) 3.3 G/DL CALC A/G RATIO (test code = 2234) 1.3 RATIO BILIRUBIN, TOTAL (test code = 2207) 0.4 MG/DL ALKALINE PHOSPHATASE (test code = 2204) 84 U/L AST (test code = 2218) 17 U/L ALT (test code = 2219) 24 U/L Jaden NegronLIPID [id number] 00:00:00* Test Item Value Reference Range Interpretation Comme nts CHOLESTEROL (test code = 2210) 195 MG/DL TRIGLYCERIDES (test code = 2232) 132 MG/DL HDL CHOLESTEROL (test code = 2220) 42 MG/DL CALC LDL CHOL (test code = 2237) 128 MG/DL RISK RATIO LDL/HDL (test cod e = 2238) 3.05 RATIO Jaden Boothe AustinHEMOGLOBIN [id number] 00:00:00* Test Item Value Reference Range Interpretation Comme nts HEMOGLOBIN A1c (test code = 83512) 6.3 % Jaden Boothe AustinCOMPREHENSIVE METABOLIC [id number] 00:00:00* Test Item Value Reference Range Interpretation Comme nts GLUCOSE (test code = 2217) 96 MG/DL BUN (test code = 2208) 17 MG/DL CREATININE (test code = 2214) 1.00 MG/DL eGFR (2020 CKD-EPI) (test co de = 12252) 69 ML/MIN/1.73 CALC BUN/CREAT (test code = 2235) 17 RATIO SODIUM (test code = 2231) 146 MEQ/L POTASSIUM (test code = 2228) 3.8 MEQ/L CHLORIDE (test code = 2215) 104 MEQ/L CARBON DIOXIDE (test code = 2206) 27 MEQ/L CALCIUM (test code = 2209) 10.0 MG/DL PROTEIN, TOTAL (test code = 2229) 7.7 G/DL ALBUMIN (test code = 2201) 4.3 G/DL CALC GLOBULIN (test code = 2240) 3.4 G/DL CALC A/G RATIO (test code = 2234) 1.3 RATIO BILIRUBIN, TOTAL (test code = 2207) 0.2 MG/DL ALKALINE PHOSPHATASE (test code = 2204) 81 U/L AST (test code = 2218) 27 U/L ALT (test code = 2219) 31 U/L Jaden Boothe AustinLIPID [id number] 00:00:00* Test Item Value Reference Range Interpretation Comme nts CHOLESTEROL (test code = 2210) 195 MG/DL TRIGLYCERIDES (test code = 2232) 132 MG/DL HDL CHOLESTEROL (test code = 2220) 42 MG/DL CALC LDL CHOL (test code = 2237) 128 MG/DL RISK RATIO LDL/HDL (test cod e = 2238) 3.05 RATIO Jaden Boothe AustinHEMOGLOBIN [id number] 00:00:00* Test Item Value Reference Range Interpretation Comme nts HEMOGLOBIN A1c (test code = 97235) 6.3 % Jaden Boothe AustinCOMPREHENSIVE METABOLIC [id number] 00:00:00* Test Item Value Reference Range Interpretation Comme nts GLUCOSE (test code = 2217) 96 MG/DL BUN (test code = 2208) 17 MG/DL CREATININE (test code = 2214) 1.00 MG/DL eGFR (2020 CKD-EPI) (test co de = 97435) 69 ML/MIN/1.73 CALC BUN/CREAT (test code = 2235) 17 RATIO SODIUM (test code = 2231) 146 MEQ/L POTASSIUM (test code = 2228) 3.8 MEQ/L CHLORIDE (test code = 2215) 104 MEQ/L CARBON DIOXIDE (test code = 2206) 27 MEQ/L CALCIUM (test code = 2209) 10.0 MG/DL PROTEIN, TOTAL (test code = 2229) 7.7 G/DL ALBUMIN (test code = 2201) 4.3 G/DL CALC GLOBULIN (test code = 2240) 3.4 G/DL CALC A/G RATIO (test code = 2234) 1.3 RATIO BILIRUBIN, TOTAL (test code = 2207) 0.2 MG/DL ALKALINE PHOSPHATASE (test code = 2204) 81 U/L AST (test code = 2218) 27 U/L ALT (test code = 2219) 31 U/L Jaden NegronLIPID [id number] 00:00:00* Test Item Value Reference Range Interpretation Comme nts CHOLESTEROL (test code = 2210) 195 MG/DL TRIGLYCERIDES (test code = 2232) 132 MG/DL HDL CHOLESTEROL (test code = 2220) 42 MG/DL CALC LDL CHOL (test code = 2237) 128 MG/DL RISK RATIO LDL/HDL (test cod e = 2238) 3.05 RATIO Jaden NegronHEMOGLOBIN [id number] 00:00:00* Test Item Value Reference Range Interpretation Comme nts HEMOGLOBIN A1c (test code = 11987) 6.3 % Jaden NegronCOMPREHENSIVE METABOLIC [id number] 00:00:00* Test Item Value Reference Range Interpretation Comme nts GLUCOSE (test code = 2217) 96 MG/DL BUN (test code = 2208) 17 MG/DL CREATININE (test code = 2214) 1.00 MG/DL eGFR (2020 CKD-EPI) (test co de = 32454) 69 ML/MIN/1.73 CALC BUN/CREAT (test code = 2235) 17 RATIO SODIUM (test code = 2230) 146 MEQ/L POTASSIUM (test code = 2228) 3.8 MEQ/L CHLORIDE (test code = 2215) 104 MEQ/L CARBON DIOXIDE (test code = 2205) 27 MEQ/L CALCIUM (test code = 2208) 10.0 MG/DL PROTEIN, TOTAL (test code = 2228) 7.7 G/DL ALBUMIN (test code = 2200) 4.3 G/DL CALC GLOBULIN (test code = 0) 3.4 G/DL CALC A/G RATIO (test code = 223) 1.3 RATIO BILIRUBIN, TOTAL (test code = 2206) 0.2 MG/DL ALKALINE PHOSPHATASE (test code = 2203) 81 U/L AST (test code = 2217) 27 U/L ALT (test code = 2218) 31 U/L Jaden F AustinOccult Blood, Fecal, [id number] 00:00:00* Test Item Value Reference Range Interpretation Comme nts Occult Blood, Fecal, IA (miranda t code = 94852-3) Negative Jaden F AustinOccult Blood, Fecal, [id number] 00:00:00* Test Item Value Reference Range Interpretation Comme nts Occult Blood, Fecal, IA (miranda t code = 27008-5) Negative Jaden F AustinOccult Blood, Fecal, [id number] 00:00:00* Test Item Value Reference Range Interpretation Comme nts Occult Blood, Fecal, IA (miranda t code = 45096-9) Negative Jadenmikki NegronCBC W/AUTO [id number] 00:00:00* Test Item Value Reference Range Interpretation Comme nts NUCLEATED RBCS (test code = 36663-6) 0.0 /100 WBC'S See_Comment [Automated [employer]] The system which generated this result transmitted reference range: 0.0 /100 WBC'S. The reference range was not used to interpret this result as normal/abnormal. ABSOLUTE EOSINOPHILS (test code = 05755-7) 0.12 K/UL See_Comment [Automated [employer]] The system which generated this result transmitted reference range: 0.00-0.50 K/UL. The reference range was not used to interpret this result as normal/abnormal. ABSOLUTE LYMPHOCYTES (test code = 92676-4) 3.85 K/UL See_Comment [Automated messa ge] The system which generated this result transmitted reference range: 1.00-4.00 K/UL. The reference range was not used to interpret this result as normal/abnormal. ABSOLUTE MONOCYTES (test code = 88535-8) 0.39 K/UL See_Comment [Automated messa ge] The system which generated this result transmitted reference range: 0.20-1.00 K/UL. The reference range was not used to interpret this result as normal/abnormal. ABSOLUTE NEUTROPHILS (test code = 41195-4) 2.41 K/UL See_Comment [Automated messa ge] The system which generated this result transmitted reference range: 1.50-7.50 K/UL. The reference range was not used to interpret this result as normal/abnormal. BASOPHILS (test code = 30854-2) 0.9 % EOSINOPHILS (test code = 76612-6) 1.8 % HEMATOCRIT (test code = 95855-4) 40.6 % See_Comment [Automated messa ge] The system which generated this result transmitted reference range: 34.0-45.0 %. The reference range was not used to interpret this result as normal/abnormal. HEMOGLOBIN (test code = 718-7) 13.3 G/DL See_Comment [Automated messa ge] The system which generated this result transmitted reference range: 11.5-15.5 G/DL. The reference range was not used to interpret this result as normal/abnormal. LYMPHOCYTES (test code = 54294-4) 56.3 % MCH (test code = 01399-1) 28.6 PG See_Comment [Automated messa ge] The system which generated this result transmitted reference range: 25.0-33.0 PG. The reference range was not used to interpret this result as normal/abnormal. MCHC (test code = 94188-6) 32.8 G/DL See_Comment [Automated messa ge] The system which generated this result transmitted reference range: 31.0-36.0 G/DL. The reference range was not used to interpret this result as normal/abnormal. MCV (test code = 09930-8) 87.3 fL See_Comment [Automated messa ge] The system which generated this result transmitted reference range: 80.0-99.0 fL. The reference range was not used to interpret this result as normal/abnormal. MONOCYTES (test code = 66827-4) 5.7 % NEUTROPHILS (test code = 47307-2) 35.2 % PLATELET COUNT (test code = 60522-4) 391 K/UL See_Comment [Automated messa ge] The system which generated this result transmitted reference range: 130-400 K/UL. The reference range was not used to interpret this result as normal/abnormal. RBC (test code = 63209-3) 4.65 M/UL See_Comment [Automated messa ge] The system which generated this result transmitted reference range: 3.80-5.40 M/UL. The reference range was not used to interpret this result as normal/abnormal. RDW (test code = 84820-0) 13.0 % See_Comment [Automated messa ge] The system which generated this result transmitted reference range: 11.5-15.0 %. The reference range was not used to interpret this result as normal/abnormal. WBC (test code = 80518-0) 6.8 K/UL See_Comment [Automated messa ge] The system which generated this result transmitted reference range: 3.5-11.0 K/UL. The reference range was not used to interpret this result as normal/abnormal. CBC W/AUTO [id number] 00:00:00* Test Item Value Reference Range Interpretation Comme nts NUCLEATED RBCS (test code = 49674-4) 0.0 /100 WBC'S See_Comment [Automated messa ge] The system which generated this result transmitted reference range: 0.0 /100 WBC'S. The reference range was not used to interpret this result as normal/abnormal. ABSOLUTE EOSINOPHILS (test code = 64928-2) 0.12 K/UL See_Comment [Automated messa ge] The system which generated this result transmitted reference range: 0.00-0.50 K/UL. The reference range was not used to interpret this result as normal/abnormal. ABSOLUTE LYMPHOCYTES (test code = 46803-6) 2.90 K/UL See_Comment [Automated messa ge] The system which generated this result transmitted reference range: 1.00-4.00 K/UL. The reference range was not used to interpret this result as normal/abnormal. ABSOLUTE MONOCYTES (test code = 41976-8) 0.33 K/UL See_Comment [Automated messa ge] The system which generated this result transmitted reference range: 0.20-1.00 K/UL. The reference range was not used to interpret this result as normal/abnormal. ABSOLUTE NEUTROPHILS (test code = 82936-7) 2.60 K/UL See_Comment [Automated messa ge] The system which generated this result transmitted reference range: 1.50-7.50 K/UL. The reference range was not used to interpret this result as normal/abnormal. BASOPHILS (test code = 98250-3) 0.7 % EOSINOPHILS (test code = 60660-8) 2.0 % HEMATOCRIT (test code = 12976-0) 39.6 % See_Comment [Automated messa ge] The system which generated this result transmitted reference range: 34.0-45.0 %. The reference range was not used to interpret this result as normal/abnormal. HEMOGLOBIN (test code = 718-7) 12.8 G/DL See_Comment [Automated messa ge] The system which generated this result transmitted reference range: 11.5-15.5 G/DL. The reference range was not used to interpret this result as normal/abnormal. LYMPHOCYTES (test code = 16213-8) 48.3 % MCH (test code = 78604-7) 28.9 PG See_Comment [Automated messa ge] The system which generated this result transmitted reference range: 25.0-33.0 PG. The reference range was not used to interpret this result as normal/abnormal. MCHC (test code = 61398-1) 32.3 G/DL See_Comment [Automated messa ge] The system which generated this result transmitted reference range: 31.0-36.0 G/DL. The reference range was not used to interpret this result as normal/abnormal. MCV (test code = 72418-3) 89.4 fL See_Comment [Automated messa ge] The system which generated this result transmitted reference range: 80.0-99.0 fL. The reference range was not used to interpret this result as normal/abnormal. MONOCYTES (test code = 96633-4) 5.5 % NEUTROPHILS (test code = 41431-1) 43.3 % PLATELET COUNT (test code = 60483-7) 365 K/UL See_Comment [Automated messa ge] The system which generated this result transmitted reference range: 130-400 K/UL. The reference range was not used to interpret this result as normal/abnormal. RBC (test code = 03076-4) 4.43 M/UL See_Comment [Automated [employer]] The system which generated this result transmitted reference range: 3.80-5.40 M/UL. The reference range was not used to interpret this result as normal/abnormal. RDW (test code = 01563-1) 13.3 % See_Comment [Automated [employer]] The system which generated this result transmitted reference range: 11.5-15.0 %. The reference range was not used to interpret this result as normal/abnormal. WBC (test code = 59819-9) 6.0 K/UL See_Comment [Automated [employer]] The system which generated this result transmitted reference range: 3.5-11.0 K/UL. The reference range was not used to interpret this result as normal/abnormal. Lipid Panel With LDL/HDL [id number] 00:00:00* Test Item Value Reference Range Interpretation Comme [facility] Cholesterol, Total (test code = 2093-3) 167 mg/dL See_Comment [Automated message] The system which generated this result transmitted reference range: 100-199 mg/dL. The reference range was not used to interpret this result as normal/abnormal. Triglycerides (test code = 2571-8) 103 mg/dL See_Comment [Automated [employer]] The system which generated this result transmitted reference range: 0-149 mg/dL. The reference range was not used to interpret this result as normal/abnormal. HDL Cholesterol (test code = 2085-9) 41 mg/dL See_Comment [Automated [employer]] The system which generated this result transmitted reference range: >39 mg/dL. The reference range was not used to interpret this result as normal/abnormal. SARS-CoV-2 (COVID-19) by RT-PCR (HIGH RISK)2020-10-14 00:00:00* Test Item Value Reference Range Interpretation Comme nts SARS-CoV-2 INTERPRETATION (t est code = 67663) POSITIVE SOURCE (test code = 58514) NOT SPECIFIED Jaden NegronSARS-CoV-2 (COVID-19) by RT-PCR (HIGH RISK)2020-10-14 00:00:00* Test Item Value Reference Range Interpretation Comme nts SARS-CoV-2 INTERPRETATION (t est code = 47970) POSITIVE SOURCE (test code = 02970) NOT SPECIFIED Jaden NegronSARS-CoV-2 (COVID-19) by RT-PCR (HIGH RISK)2020-10-14 00:00:00* Test Item Value Reference Range Interpretation Comme nts SARS-CoV-2 INTERPRETATION (t est code = 46481) POSITIVE SOURCE (test code = 68158) NOT SPECIFIED Jaden Negron Notes Date/Time Note Provider Source Jaden Negron [facility]2025-01-23 00:00:00 Jaden Negron [facility]2025-01-10 14:37:24 Pt discharged with diagnosis of herpes zoster without complication. Printed and verbal instructions reviewed with and given to pt. Prescriptions given x 1. Pt verbalized understanding of teaching, medication, and recommended follow-up. Denies questions or concerns at this time. Pt ambulatory at discharge. Appears in no apparent distress. No ataxia noted. Accompanied by family. MANAGER [facility]isa [id number]14:05 Patient states: "I came in here on Saturday and they did the test to check for blood clots but it was negative. They gave me tramadol. This rash came up today on this leg" MANAGER Ava Friend [id number] 18:43:36 Pt given printed and verbal discharge instructions regarding lumbar radiculopathy and right leg pain, encouraged hydration. Prescriptions provided. Discussed tramadol side affects and to avoid driving/operating machinery/or engaging in activities requiring alertness while taking. Pt verbalized understanding of instructions, pt awake alert oriented, resp reg unlabored, skin w/d, color appropriate for race, moves all ext well, pt encouraged to follow up with pcp. Advised to seek medical attention for new/prolonged/worsening of symptoms. Symptoms addressed. No adverse reaction to meds given in ER noted upon discharge. Pt leaving amb with steady gait, in no apparent distress. MANAGER [facility]illermnia [id number]:16:53 Patient reports having right thigh pain that originates in lower back sn shoots down leg described as stabbing for past two days. Denies trauma. Patient took ibuprofen about 2 hours ago. MANAGER Dusty Willoughby [facility] - [id number] 00:00:00 Jaden F. [facility]
--- NOTE | 2024-11-17 17:12 | RAD REPORT ---
Abdomen Exam Limited: 11/17/2024 4:45 PM CLINICAL HISTORY: ABD PAIN STUDY: Limited right upper quadrant ultrasound of abdomen. COMPARISON: None. FINDINGS: Liver: Hepatic steatosis. Bile ducts: No intrahepatic or extrahepatic biliary ductal dilatation. Common bile duct measures 3 mm. Gallbladder: Contracted gallbladder. A large shadowing stones present. Fatty sparing along the gallbl adder fossa. IMPRESSION: Contracted gallbladder with at least one shadowing stone. No sonographic Longoria sign reported. No gal lbladder wall thickening or significant pericholecystic fluid. These findings are not indicative of acute cholecystitis.
[2024-11-17 18:10] LABS: Absolute Lymphocytes (CBC) 3.3 K/uL (0.7-4.9); Hematocrit 40.4 % (36.0-45.0); Hemoglobin 13.5 g/dL (12.0-15.0); MCH 28.7 pg (27.0-35.0); MCHC 33.5 g/dL (32.0-36.0); MCV 85.8 fL (80-100); MPV 7.3 fL (7.6-11.3); Nucleated RBC Absolute Count 0.0 (0-0); Nucleated Red Blood Cells % 0.0 % (0-0); RBC Red Blood Cell Count 4.71 M/uL (3.86-4.86); White Blood Count 7.20 thou/uL (4.3-10.9)
[2024-11-17 18:24] LABS: ALT/SGPT 30.0 U/L (13-56); AST/SGOT 16.0 U/L (15-37); Albumin 3.5 g/dL (3.4-5.0); Albumin/Globulin Ratio 0.8 (1.1-1.8); Alkaline Phosphatase 82.0 U/L (45-117); Anion Gap 6.5 mEq/L (5.0-15.0); BUN Blood Urea Nitrogen 14.0 mg/dL (7-18); Globulin 4.4 g/dL (2.3-3.5); Glucose Level 89.0 mg/dL (74-106); Lipase 23.0 U/L (13-75); Potassium 3.5 mEq/L (3.5-5.1)
--- NOTE | 2024-11-17 19:25 | RAD REPORT ---
EXAMINATION: Abdomen Pelvis Wo Contrast CLINICAL INDICATION: Female, 49 years old.ABD PAIN TECHNIQUE: CT abdomen and pelvis was performed, without IV contrast, as per department protocol. Axia l, sagittal and coronal reconstructions were obtained. One or more of the following dose reduction techniques were used: Automated exposure control, adjustment of the mA and/or kV according to the pat ient size, and/or iterative reconstruction. Unless otherwise specified, incidental findings do not require dedicated imaging follow-up. [id number]. IV CONTRAST: Not administered. COMPARISON: No prior exams FINDINGS: The lack of intravenous contrast limits the sensitivity of this exam for evaluation of solid visceral organs, vascular structures, and retroperitoneum. LOWER CHEST: No acute process identified.No significant pericardial effusion. UPPER GI: No significant abnormality. LIVER: Hepatomegaly with steatosis. Fatty sparing along the gallbladder fossa. GALLBLADDER/BILE DUCTS: No biliary ductal dilatation.? PANCREAS: No mass, ductal dilation, or bernie-pancreatic fluid. SPLEEN: Unremarkable. ADRENALS: Adrenal thickening without discrete mass. KIDNEYS AND URETERS: No hydronephrosis.Limited evaluation for renal lesions in the absence of IV cont rast.No renal calculi.No ureteral calculi. ABDOMINAL AORTA AND OTHER VESSELS: Normal caliber aorta and IVC. PERITONEUM: No abnormal free fluid. No free air. LYMPH NODES: No pathologic lymphadenopathy. ABDOMINAL WALL: Unremarkable SMALL BOWEL/COLON: Small bowel has normal course and caliber. No colonic wall thickening or pericolon ic inflammatory changes.Normal appendix. URINARY BLADDER: Underdistended but grossly unremarkable. REPRODUCTIVE ORGANS: No pathologic process. MUSCULOSKELETAL: No acute or suspicious osseous abnormality. ADDITIONAL FINDINGS: None. IMPRESSION: No acute findings within the abdomen or pelvis. Hepatomegaly with steatosis.
--- NOTE | 2024-11-17 19:35 | EDPHYS ---
Physician Documentation [facility] Name: Oumar Rios Age: 49 yrs Sex: Female : 1975 Arrival Date: 11/17/2024 Time: 16:00 Bed 7 Private MD: ED Physician Boyd Ovalles HPI: 11/17 17:24 This 49 yrs old Black Female presents to ER via Ambulatory with complaints of Back Pain kb - LOWER, Abdominal Pain - RLQ. 17:24 Pt is a 49 year old female who presents for right upper abd and lateral abdominal pain kb that started 3 days ago. Reports nausea and dizziness. Denies vomiting, fever. . 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 - Infectious Disease History:: Denies. - Social history:: Smoking status: Patient denies any tobacco usage or history of. ROS: 17:24 Constitutional: As per HPI kb Exam: 17:24 Constitutional: This is a well developed, well nourished patient who is awake, alert, kb and in no acute distress. Head/Face: Normocephalic, atraumatic. ENT: Moist Mucous membranes Cardiovascular: Regular rate Respiratory: Respirations even and unlabored. No increased work of breathing. Talking in full sentences Back: No spinal tenderness. No costovertebral tenderness. Full range of motion. Skin: Warm, dry with normal turgor. Normal color. MS/ Extremity: Pulses equal, no cyanosis. Neurovascular intact. Full, normal range of motion. Neuro: Awake and alert, GCS 15, oriented to person, place, time, and situation. 17:24 Abdomen/GI: Inspection: abdomen appears normal, Bowel sounds: normal, Palpation: soft, in all quadrants, moderate abdominal tenderness, in the right upper quadrant, Vital Signs: 16:10 BP 120 / 75; Pulse 71; Resp 17; Temp 98.4; Pulse Ox 100% ; Weight 98.88 kg; Height 5 ll1 ft. 8 in. ; Pain 8/10; 18:37 BP 136 / 92; Pulse 66; Resp 18; Pulse Ox 100% on R/A; ap3 19:50 BP 137 / 75; Pulse 69; Resp 19; Pulse Ox 100% on R/A; tb4 16:10 Body Mass Index 33.15 (98.88 kg, 172.72 cm) ll1 16:10 Pain Scale: Adult ll1 MDM: 16:04 Medical Screening Exam initiated kb 17:24 Data reviewed: vital signs, nurses notes. kb 19:32 Differential diagnosis: cholecystitis, Cholelithiasis, gastritis, non-specific abd kb pain, pancreatitis. 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 11/17 16:08 Order name: CBC with Diff; Complete Time: 18:14 kb 11/17 16:08 Order name: CMP; Complete Time: 18:24 kb 11/17 16:08 Order name: Lipase; Complete Time: 18:24 kb 11/17 16:08 Order name: Abdomen Limited US; Complete Time: 17:20 kb 11/17 18:35 Order name: Abdomen ; Complete Time: 19:26 EDMS 11/17 16:08 Order name: Labs collected and sent; Complete Time: 17:59 kb Administered Medications: No medications were administered Disposition Summary: 11/17/24 19:34 Discharge Ordered Notes: Location: Home kb Condition: Stable kb Diagnosis - Upper abdominal pain, unspecified kb Followup: kb - With: Emergency Department - When: As needed - Reason: Worsening of condition Followup: kb - With: Private Physician - When: 2 - 3 days - Reason: Recheck today's complaints, Continuance of care, Re-evaluation by your physician Discharge Instructions: - Discharge Summary Sheet kb - Abdominal Pain, Adult, Ctec-py-[id number] kb Forms: - Medication Reconciliation Form kb - Antibiotic Education kb - Prescription Opioid Use kb - Patient Portal Instructions kb - Leadership Thank You Letter kb Prescriptions: - Zofran 4 mg Oral tablet - take 1 tablet ORAL route every 6 hours As needed; 12 tablet; Refills: 0, kb Product Selection Permitted - dicyclomine 20 mg Oral tablet - take 1 tablet ORAL route 4 times per day As needed; 20 tablet; Refills: 0, kb Product Selection Permitted Signatures: Dispatcher [employer] EDElla Brenner FNP-C FNP-Ckb Prokisch, Amanda RN RN ap3 Maria De Jesus Robledo RN RN ll1 Corrections: (The following items were deleted from the chart) 16:10 16:06 PSHx: None; 1 [facility] 18:35 17:21 Abdomen Pelvis W Con+CT.RAD.BRZ ordered. EDDC EDDC 19:34 19:34 Acute upper respiratory infection, unspecified kb kb
--- NOTE | 2024-11-17 19:35 | ER ---
Nurse's Notes [facility] Name: Oumar Rios Age: 49 yrs Sex: Female : 1975 Arrival Date: 11/17/2024 Time: 16:00 Bed 7 Private MD: Diagnosis: Upper abdominal pain, unspecified Presentation: 11/17 16:10 Chief complaint: Patient states: Lower back pain since Saturday. RUQ abdominal pain ll1 with diarrhea and nausea for 2 days. Coronavirus screen: Client denies travel out of the [place] in the last 14 days. At this time, the client does not indicate any symptoms associated with coronavirus-19. Ebola Screen: Patient denies travel to an Ebola-affected area in the 21 days before illness onset. Initial Sepsis Screen: Does the patient meet any 2 criteria? No. Patient's initial sepsis screen is negative. Does the patient have a suspected source of infection? No. Patient's initial sepsis screen is negative. Risk Assessment: Do you want to hurt yourself or someone else? Patient reports no desire to harm self or others. Onset of symptoms was November 14, 2024. 16:10 Method Of Arrival: Ambulatory ll1 16:10 Acuity: JEREMY 3 ll1 Triage Assessment: 16:10 General: Appears uncomfortable, Behavior is calm, cooperative, appropriate for age. ll1 Pain: Complains of pain in abdomen. GI: Reports upper abdominal pain, diarrhea, nausea. Musculoskeletal: Reports pain in back. 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 - Infectious Disease History:: Denies. - Social history:: Smoking status: Patient denies any tobacco usage or history of. Screenin:36 Abuse screen: Denies threats or abuse. Nutritional screening: No deficits noted. ap3 Tuberculosis screening: No symptoms or risk factors identified. 19:50 [facility] ED Fall Risk Assessment (Adult) History of falling in the last 3 months, tb4 including since admission No falls in past 3 months (0 pts) Confusion or Disorientation No (0 pts) Intoxicated or Sedated No (0 pts) Impaired Gait No (0 pts) Mobility Assist Device Used No (0 pt) Altered Elimination No (0 pt) Score/Fall Risk Level 0 - 2 = Low Risk Maintained a safe environment. Assessment: 18:36 General: Appears in no apparent distress. Behavior is calm, cooperative, appropriate ap3 for age. Pain: Complains of pain in back and abdomen. Neuro: Level of Consciousness is awake, alert, obeys commands, Oriented to person, place, time, situation, Appropriate for age. Cardiovascular: Patient's skin is warm and dry. Respiratory: Airway is patent Respiratory effort is even, unlabored, Respiratory pattern is regular, symmetrical. Vital Signs: 16:10 BP 120 / 75; Pulse 71; Resp 17; Temp 98.4; Pulse Ox 100% ; Weight 98.88 kg; Height 5 ll1 ft. 8 in. ; Pain 8/10; 18:37 BP 136 / 92; Pulse 66; Resp 18; Pulse Ox 100% on R/A; ap3 19:50 BP 137 / 75; Pulse 69; Resp 19; Pulse Ox 100% on R/A; tb4 16:10 Body Mass Index 33.15 (98.88 kg, 172.72 cm) ll1 16:10 Pain Scale: Adult ll1 ED Course: 16:03 Patient arrived in ED. cj3 16:04 Ella Frank FNP-C is [facility]. kb 16:04 Boyd Ovalles MD is Attending Physician. kb 16:06 Arm band placed on. ll1 16:12 Triage completed. ll1 16:47 Abdomen Limited US In Process Unspecified. EDMS 17:24 Radiology exam delayed due to lab results not completed at this time. (BUN/Creatinine) jc4 IV insertion attempt and/or patient not having appropriate IV at this time. 17:59 Missed attempt(s): 22 gauge in left antecubital area. Bleeding controlled, band aid ts3 applied, catheter tip intact. 17:59 Initial lab(s) drawn, by blood and plasma laboratory assistant, sent to lab. ts3 18:31 Hyacinth Covarrubias, RN is Primary Nurse. ap3 18:36 Patient has correct armband on for positive identification. Bed in low position. Call ap3 light in reach. Side rails up X 1. Provided Education on: call light education. Pulse ox on. NIBP on. 18:42 Abdomen In Process Unspecified. EDMS 19:50 No provider procedures requiring assistance completed. Patient did not have IV access tb4 during this emergency room visit. Administered Medications: No medications were administered Medication: 19:50 VIS not applicable for this client. tb4 Outcome: 19:34 Discharge ordered by . jose alejandro 19:51 Discharged to home ambulatory, tb4 19:51 Condition: stable 19:51 Discharge instructions given to patient, Instructed on discharge instructions, follow up and referral plans. Demonstrated understanding of instructions, follow-up care, medications, Prescriptions given X 2, 19:52 Patient left the ED. tb4 Signatures: Dispatcher [employer] EDMS Ella Frank, CTC SAMPLE DRILLER-Hyacinth Fontaine, RN RN ap3 Maria De Jesus Robledo RN RN ll1 Dusty Ness jc4 Jeanie Acosta cj3 Veronica May RN RN tb4 [place] Ignacio ts3 Corrections: (The following items were deleted from the chart) 16:10 16:06 PSHx: None; ll1 ll1
[2024-11-17 20:37] VITALS: TEMP 98.4; O2SAT 100
[2024-11-17 20:45] VITALS: BP 137/75
== END 2024-11-17 19:52 | disposition home or self-care (01) ==
LOC: ER 16:00
DX: R10.11 Right upper quadrant pain (principal)
CPT/HCPCS: 36415; 74176; 76705; 80053; 83690; 85025; 99284